=== PATIENT | male | born 1980 | race Caucasian/White ===

== ENCOUNTER 2019-10-03 20:05 | Emergency (ER) | payer MEDICAID ==
[~2019-10-03] VITALS: Ht 167.6 cm; Wt 95.7 kg
[2019-10-03 20:14] VITALS: Ht 167.6 cm; Wt 95.7 kg
[2019-10-03 21:55] VITALS: BP 131/81
== END 2019-10-03 21:55 | disposition home or self-care (01) ==
LOC: ED 20:05
DX: J06.9 Acute upper respiratory infection, unspecified (principal); R03.0 Elevated blood-pressure reading, without diagnosis of hypertension
CPT/HCPCS: J1100